=== PATIENT | male | born 1975 | race Caucasian/White ===

== ENCOUNTER 2017-05-11 20:39 | Emergency (ER) | payer MEDICAID ==
[~2017-05-11] VITALS: Ht 170.2 cm; Wt 62.0 kg
[2017-05-11 20:43] VITALS: Ht 170.2 cm; Wt 62.0 kg
[2017-05-11] MEDS ORDERED: SOD CHLORIDE 0.9% 1,000 ML IV STA (21:13)
[2017-05-11 21:26] LABS: BASOPHIL # 0.1 10^3/ul (0.0-0.1); BASOPHILS % 0.6 % (0.0-2.0); EOSINOPHILS # 0.1 10^3/ul (0.0-0.5); HEMATOCRIT 45.7 % (42.0-52.0); HEMOGLOBIN 15.9 g/dl (14.0-18.0); LYMPHOCYTES # 3.2 10^3/ul (0.8-2.9); LYMPHOCYTES % 39.3 % (15.0-51.0); MEAN CORPUSCULAR HEMOGLOBIN 30.2 pg (29.0-33.0); MEAN CORPUSCULAR HGB CONC 34.8 g/dl (32.0-37.0); MEAN CORPUSCULAR VOLUME 86.9 fl (82.0-101.0); MEAN PLATELET VOLUME 10.9 fl (7.4-10.4); MONOCYTE # 0.6 10^3/ul (0.3-0.9); MONOCYTES % 6.8 % (0.0-11.0); NEUTROPHIL # 4.3 10^3/ul (1.6-7.5); NEUTROPHILS % 52.1 % (39.0-77.0); PLATELET COUNT 223 10^3/UL (140-415); RED BLOOD COUNT 5.26 10^6/ul (4.70-6.10); RED CELL DISTRIBUTION WIDTH 12.1 % (11.5-14.5); WHITE BLOOD COUNT 8.2 10^3/ul (4.8-10.8)
[2017-05-11 21:45] LABS: ALANINE AMINOTRANSFERASE 46 IU/L (13-69); ALBUMIN 4.8 g/dl (3.3-4.9); ALKALINE PHOSPHATASE 90 IU/L (42-121); ANION GAP 22 (8-16); ASPARTATE AMINO TRANSFERASE 31 IU/L (15-46); BILIRUBIN,INDIRECT 0.5 mg/dl (0-1.1); BILIRUBIN,TOTAL 0.5 mg/dl (0.2-1.3); BLOOD UREA NITROGEN 14 mg/dl (7-20); CALCIUM 9.2 mg/dl (8.4-10.2); CARBON DIOXIDE 24 mmol/L (21-31); CHLORIDE 99 mmol/L (97-110); CREATININE 0.98 mg/dl (0.61-1.24); GLUCOSE 180 mg/dl (70-220); POTASSIUM 3.6 mmol/L (3.5-5.1); SODIUM 141 mmol/L (135-144)
[2017-05-11 21:48] LABS: ACETAMINOPHEN < 10.0 ug/ml (10.0-30.0); SALICYLATE < 1.0 mg/dl (5.0-30.0)
--- NOTE | 2017-05-11 22:03 | RADRPT ---
PROCEDURE: CT Head without. CLINICAL INDICATION: Altered level of consciousness. TECHNIQUE: The study was performed utilizing a multi-slice, multidetector CT scanner. Direct spira l 1 mm axial sections were obtained through the head without the use of intravenous contrast materia l. 1 or more of the following dose reduction techniques were utilized: Automated exposure control, adjustment of the mA and/or kV according to patient's size, iterative reconstruction technique. Co prashanth and sagittal reformations were obtained. The images were reviewed on a PACS workstation. DICOM images are available. RADIATION DOSE: CTDIvol: 43.7 mGyDLP: 720.2 mGy-cm COMPARISON: No prior studies are available for comparison. FINDINGS: There is no intracranial hemorrhage, extra-axial fluid collection, mass lesion, midline shift or hyd rocephalus. The ventricles, sulci and cisterns are within normal limits. The white matter is unrem arkable. The mello-white matter differentiation is preserved. The basal cisterns are patent. The m idline structures are intact. The orbits, calvarium and extracranial soft tissues are normal in elsa earance. The visualized paranasal sinuses, mastoid air cells and middle ear cavities are normally ae rated. There is a metallic BB in the left frontal soft tissues with associated streak artifact. IMPRESSION: 1. No acute intracranial abnormality. No intracranial hemorrhage, extra-axial fluid collection, ma ss lesion or hydrocephalous. RPTAT: HGAS .Mat Ocampo MD, Date Time Electronically viewed and signed by .Mat Ocampo MD, on 05/11/2017 22:02 .S/
[2017-05-11 22:04] LABS: TROPONIN-I < 0.012 ng/ml (0.00-0.12)
--- NOTE | 2017-05-11 22:07 | RADRPT ---
PROCEDURE: XR Chest. CLINICAL INDICATION: Altered mental status. TECHNIQUE: Single frontal view of the chest was obtained COMPARISON: None FINDINGS: The heart and mediastinum are within normal limits. The lungs are clear. There is no pleural effusion or pneumothorax. The osseous structures are unremarkable. IMPRESSION: 1. No acute cardiopulmonary disease. RPTAT:AAJJ Aquiles Neal Physician Date Time Electronically viewed and signed by Aquiles eNal Physician on 05/11/2017 22:06 QL/
[2017-05-11 22:15] LABS: ADD UMIC NO; UR ASCORBIC ACID NEGATIVE (NEGATIVE); UR BILIRUBIN (Dip) NEGATIVE (NEGATIVE); UR BLOOD (Dip) NEGATIVE (NEGATIVE); UR CLARITY CLEAR (CLEAR); UR COLOR YELLOW (YELLOW); UR GLUCOSE (Dip) NEGATIVE (NEGATIVE); UR KETONES (Dip) NEGATIVE (NEGATIVE); UR LEUKOCYTE ESTERASE (Dip) NEGATIVE Leu/ul (NEGATIVE); UR NITRITE (Dip) NEGATIVE (NEGATIVE); UR SPECIFIC GRAVITY (Dip) 1.017 (1.003-1.030); UR TOTAL PROTEIN (Dip) NEGATIVE (NEGATIVE); UR UROBILINOGEN (Dip) NEGATIVE (NEGATIVE)
[2017-05-11 22:17] LABS: T3 UPTAKE 30.8 % (23.5-40.5)
[2017-05-11 22:32] LABS: BARBITURATES Negative (NEGATIVE); BENZODIAZEPINES Negative (NEGATIVE); CANNABINOIDS Negative (NEGATIVE); COCAINE Negative (NEGATIVE); OPIATES Negative (NEGATIVE)
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
[2017-05-12] MEDS ORDERED: ONDANSETRON 4 MG INJ IV PRN (01:30)
[2017-05-12] MEDS ORDERED: ACETAMINOPHEN 325 MG TAB PO PRN (01:30)
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
--- NOTE | 2017-05-12 05:05 | EN ---
Date/Time of Note Date/Time of Note DATE: 05/12/17 TIME: 05:[address] goodson called and spoke with me. He is questioning as to why the patient is getting admitted to the hospital because the patient is psychotic from methamphetamine use, he is suicidal feels like the police are after him and thinks the phone is melting. Patient was evaluated by telemetry psychiatry who also recommends inpatient psychiatric care. The patient CT scan of brain is negative as well as blood work is unremarkable. Dr. Hernandez feels the patient is best served being transferred to a psych facility. I will have a pulling unit floorhand arrange for this to happen. Patient appears to be medically cleared TAD ZUNIGA DO May 12, 2017 05:05
[2017-05-12] MEDS ORDERED: RISPERIDONE 0.25 MG TAB PO SCH (09:00)
[2017-05-12 11:10] VITALS: BP 116/69; PULSE 78; RESP 18; TEMP 98.5
== END 2017-05-12 13:10 | disposition short-term general hospital (02) ==
LOC: E/R 20:39
DX: R40.4 Transient alteration of awareness (principal); R41.0 Disorientation, unspecified; R45.851 Suicidal ideations; R40.2142 Coma scale, eyes open, spontaneous, at arrival to emergency department; R40.2242 Coma scale, best verbal response, confused conversation, at arrival to emergency department; R40.2362 Coma scale, best motor response, obeys commands, at arrival to emergency department
CPT/HCPCS: 51702; 70450; 71010; 80053; 80307; 81003; 84436; 84479; 84484; 85025; 93005; J7030; Z7502; Z7610; 80306; A4310